=== PATIENT | female | born 1955 | race Caucasian/White ===

== ENCOUNTER 2018-05-02 08:29 | Emergency (ER) | payer OTHER, SELFPAY ==
[2018-05-02 08:45] VITALS: PULSE 74
[2018-05-02 08:49] VITALS: BP 147/73; PULSE 74; RESP 18; TEMP 37; O2SAT 99; BMI 22.3
--- NOTE | 2018-05-02 08:49 | DI.RAD.S_ITS ---
PROCEDURE: XR FOOT LT MIN 3V INDICATIONS: fall pain, mid foot TECHNIQUE: 3 views of the foot were acquired. COMPARISON: [facility], CR, XR ANKLE LT MIN 3V, 05/02/2018, 8:53. [facility], CR, FOOT 3V LEFT, 02/19/2012, 12:30. FINDINGS: Bones: No fractures or dislocations. No suspicious bony lesions. Soft tissues: No tibiotalar joint effusion. Achilles tendon appears normal. IMPRESSION: No visualized acute fracture or dislocation. However, if clinical concern and/or pain persist, short interval imaging followup in 7-10 days is recommended, as occult injury cannot be definitively excluded. Dictated by: Shonna Baird M.D. on 05/02/2018 at 9:42 Approved by: Shonna Baird M.D. on 05/02/2018 at 9:43
--- NOTE | 2018-05-02 08:49 | DI.RAD.S_ITS ---
PROCEDURE: XR ANKLE LT MIN 3V INDICATIONS: fall pain TECHNIQUE: 3 views of the ankle were acquired. COMPARISON: [facility], , XR FOOT LT MIN 3V, 05/02/2018, 8:51. FINDINGS: Bones: No fractures or dislocations. Ankle mortise is normally aligned. No suspicious bony lesions. Soft tissues: No tibiotalar joint effusion. Achilles tendon appears normal. IMPRESSION: No visualized acute fracture or dislocation. However, if clinical concern and/or pain persist, short interval imaging followup in 7-10 days is recommended, as occult injury cannot be definitively excluded. Dictated by: Shonna Baird M.D. on 05/02/2018 at 9:43 Approved by: Shonna Baird M.D. on 05/02/2018 at 9:44
--- NOTE | 2018-05-02 08:49 | DI.RAD.S_ITS ---
PROCEDURE: XR KNEE LT 3V INDICATIONS: fall pain TECHNIQUE: 3 views of the knee were acquired. COMPARISON: None. FINDINGS: Bones: Poorly defined nondisplaced lucency along the margin of the proximal. No suspicious bony lesions. Soft tissues: Moderate joint effusion. No suspicious soft tissue calcifications. IMPRESSION: Questionable nondisplaced fracture in the proximal fibula with moderate effusion. Recommend correlation to point tenderness. Dictated by: Shonna Baird M.D. on 05/02/2018 at 9:17 Approved by: Shonna Baird M.D. on 05/02/2018 at 9:41
--- NOTE | 2018-05-02 08:59 | ED_ITS ---
HPI - Extremity Injury (Lower) General Chief Complaint: Extremity Injury, Lower Stated Complaint: fell, left leg pain Time Seen by Provider: 05/02/18 08:43 Source: patient Mode of arrival: wheelchair Limitations: no limitations History of Present Illness HPI Narrative: Patient is a 63-year-old female who presents with all left leg pain. She says she was walking yesterday when she tripped and fell. She is unable to ambulate or bear any weight. She has pain in her foot ankle and knee. No hip pain. No numbness or tingling. MD complaint: knee injury, leg injury, ankle injury, foot injury and fall Related Data Home Medications Medication Instructions Recorded Confirmed aspirin 325 mg PO QPM #0 11/28/12 05/02/18 insulin aspart U-100 [Novolog 1 dose SUB-Q TIDWM #0 11/28/12 05/02/18 U-100 Insulin aspart] alprazolam 1 tab PO QDAY #0 10/23/16 05/02/18 insulin glargine [Lantus Solostar 15 units SUB-Q QPM 05/02/18 05/02/18 U-100 Insulin] ranitidine HCl 2 tab PO QPM 05/02/18 05/02/18 tolterodine 4 mg PO QPM 05/02/18 05/02/18 venlafaxine 75 mg PO QAM 05/02/18 05/02/18 Allergies Allergy/AdvReac Type Severity Reaction Status Date / Time No Known Drug Allergies Allergy Verified 05/02/18 08:53 Review of Systems Review of Systems GENERAL: Denies chills,fever HEENT: Denies throat pain RESPIRATORY: Denies dyspnea, cough, wheezing CARDIOVASCULAR: Denies chest pain, palpitations GASTROINTESTINAL: Denies nausea, vomiting MUSCULOSKELETAL: See HPI SKIN: No rash, no laceration, no pruritus NEUROLOGIC: Denies weakness, dizziness, headache, numbness 8 point review of systems is negative except for those stated above and HPI All systems reviewed & are unremarkable except as noted in HPI and below PFSH Medical History Diabetes (Acute) Social History Smoking Status: Current every day smoker Exam Initial Vital Signs Initial Vital Signs: Vital Signs Pulse Rate 74 05/02/18 08:45 GENERAL: Well-appearing, well-nourished and in no acute distress. CARDIOVASCULAR: peripheral pulses in tact, cap refill <2 sec RESPIRATORY: No respiratory distress, speaks in full sentences without difficulty EXTREMITIES: Normal range of motion, no clubbing or edema. Neurovascularly intact SEE BELOW NEUROLOGICAL: Cranial nerves II through XII grossly intact. Normal gait and speech. SKIN: Warm, dry, no petechiae, no rashes or lesions. Extrem Left lower extremity: normal to inspection, knee Details: tenderness; no abrasions, no lacerations and no ecchymosis, ankle Details: normal to inspection , tenderness and abnormal ROM Details: pain with active ROM Details: with plantar flexion and pain with passive ROM Details: with plantar flexion; no swelling and edema and foot Details: normal capillary refill, tendon exam Details: active flexion normal and motor-sensory exam Details: light-touch normal; no edema and no abrasions Course Orders Ordered: ED Orders 05/02/18 08:49 XR ankle LT min 3V Stat XR foot LT min 3V Stat XR knee LT 3V Stat Vital Signs - 8 hr 05/02/18 11:02 Pulse Rate 72 Respiratory Rate 18 Blood Pressure 154/72 H Pulse Oximetry 100 MDM - Extremity Injury (Lower) Imaging Data ankle x ray: Radiologist's impression: PROCEDURE: XR ANKLE LT MIN 3V INDICATIONS: fall pain TECHNIQUE: 3 views of the ankle were acquired. COMPARISON: [facility], XR FOOT LT MIN 3V, 05/02/2018, 8:51. FINDINGS: Bones: No fractures or dislocations. Ankle mortise is normally aligned. No suspicious bony lesions. Soft tissues: No tibiotalar joint effusion. Achilles tendon appears normal. IMPRESSION: No visualized acute fracture or dislocation. However, if clinical concern and/or pain persist, short interval imaging followup in 7-10 days is recommended , as occult injury cannot be definitively excluded. Dictated by: Shonna Baird M.D. on 05/02/2018 at 9:43 xr foot: My impression: PROCEDURE: XR FOOT LT MIN 3V INDICATIONS: fall pain, mid foot TECHNIQUE: 3 views of the foot were acquired. COMPARISON: [facility], , XR ANKLE LT MIN 3V, 05/02/2018, 8:53. [facility], , FOOT 3V LEFT, 02/19/2012, 12:30. FINDINGS: Bones: No fractures or dislocations. No suspicious bony lesions. Soft tissues: No tibiotalar joint effusion. Achilles tendon appears normal. IMPRESSION: No visualized acute fracture or dislocation. However, if clinical concern and/or pain persist, short interval imaging followup in 7-10 days is recommended , as occult injury cannot be definitively excluded. Dictated by: Shonna Baird M.D. on 05/02/2018 at 9:42 knee xr: Radiologist's impression: PROCEDURE: XR KNEE LT 3V INDICATIONS: fall pain TECHNIQUE: 3 views of the knee were acquired. COMPARISON: None. FINDINGS: Bones: Poorly defined nondisplaced lucency along the margin of the proximal. No suspicious bony lesions. Soft tissues: Moderate joint effusion. No suspicious soft tissue calcifications. IMPRESSION: Questionable nondisplaced fracture in the proximal fibula with moderate effusion. Recommend correlation to point tenderness. Dictated by: Shonna Baird M.D. on 05/02/2018 at 9:17 MDM Narrative Medical decision making narrative: KNEE IMMOBILIZER PLACED, CRUTCHES AND TRAINING Discharge Plan Departure Patient Disposition: Home, Self-Care Clinical Impression: Fracture of fibula, proximal, Foot sprain Discharge Date/Time: 05/02/18 11:02 Interventions: ED Discharge Assessment Last Done: 05/02/18 11:02 Instructions: DI for Knee Sprain, DI for Foot Sprain Activity Restrictions/Additional Instructions: *You have been diagnosed with proximal fibula fracture, ft sprain ankle sprain *What to do: Wear knee immobilizer and use crutches, no fracture seen in foot or ankle if still having pain and discomfort in 7-10 days may require repeat outpatient x-ray. -ice 20 min at a time -keep the splint on at all times *Continue to take medications as directed -ibuprofen 600-800 mg every 8 hr as needed for mild-to- moderate pain *Follow up with your primary care provider in 2-3 days, call Orthopedics today to schedule follow-up appointment in 1-2 weeks *Return to ER if you should have numbness, tingling, weakness especially in foot or any new, worsening or concerning symptoms Prescriptions: No Action aspirin 325 MG tablet,delayed release (DR/EC) 325 mg PO QPM Qty: 0 RF: 0 insulin aspart U-100 [Novolog U-100 Insulin aspart] 100 UNIT/1 ML solution 1 dose Sub-Q TIDWM Qty: 0 RF: 0 alprazolam 0.25 MG tablet 1 tab PO QDAY Qty: 0 RF: 0 venlafaxine 75 mg capsule,extended release 24hr 75 mg PO QAM RF: 0 tolterodine 4 mg capsule,extended release 24hr 4 mg PO QPM RF: 0 ranitidine HCl 150 mg tablet 2 tab PO QPM RF: 0 insulin glargine [Lantus Solostar U-100 Insulin] 100 unit/mL (3 mL) insulin pen 15 units Sub-Q QPM RF: 0 Referrals: [facility] [Provider Group] Tyrese Simpson MD [Primary Care Provider] -
[2018-05-02 11:02] VITALS: BP 154/72; PULSE 72; RESP 18; O2SAT 100
== END 2018-05-02 11:02 | disposition home or self-care (01) ==
PROVIDERS: Emergency Provider Emergency Medicine; Family Provider Internal Medicine; PCP Internal Medicine
DX: S82.832A Other fracture of upper and lower end of left fibula, initial encounter for closed fracture (principal); S93.602A Unspecified sprain of left foot, initial encounter; W01.0XXA Fall on same level from slipping, tripping and stumbling without subsequent striking against object, initial encounter
CPT/HCPCS: 73562; 73610; 73630; 99282; 99283

== ENCOUNTER → 2018-10-10 14:11 | Outpatient (CLI) | payer OTHER, SELFPAY ==
--- NOTE | 2018-10-10 | DI.MG.S_ITS ---
BILATERAL DIGITAL DIAGNOSTIC MAMMOGRAM 3D/2D: 10/10/2018 CLINICAL: Left lump. Family history of breast cancer. Comparison is made to exams dated: 01/10/2018 mammogram, 02/04/2016 mammogram, and 10/02/2014 mammogram - [facility]. The tissue of both breasts is extremely dense, which lowers the sensitivity of mammography. There is a triangular marker overlying the skin of the superior left breast at the site of the patient's reported palpable abnormality. There is no underlying mammographic abnormality. There are linear scar markers overlying the skin of the right breast. No significant masses, calcifications, or other findings are seen in either breast. IMPRESSION: INCOMPLETE: NEEDS ADDITIONAL IMAGING EVALUATION No mammographic abnormality to correlate with the site of the patient's reported focal palpable abnormality in the superior left breast. Targeted diagnostic ultrasound recommended for further evaluation, which will be performed immediately following this exam. This exam was interpreted at Station ID: [id number]. NOTE: For mammograms, a report in lay terms will be sent to the patient. Approximately 15% of breast malignancies will not be visualized mammographically. In the management of a palpable breast mass, a negative mammogram must not discourage biopsy of a clinically suspicious lesion. Electronically Signed By: Mohsen Forde M.D. ecl/:10/10/2018 15:36:23 letter sent: Additional Imaging Needed ACR BI-RADS Category 0: Incomplete 3340F
--- NOTE | 2018-10-10 | DI.US.S_ITS ---
LIMITED ULTRASOUND OF LEFT BREAST: 10/10/2018 CLINICAL: Palpable left breast lump. Comparison is made to exams dated: 10/10/2018 mammogram, 01/10/2018 mammogram, and 02/04/2016 mammogram - [facility]. Real-time and Doppler ultrasound of the left breast superior aspect were performed. Targeted ultrasound was performed in the region of the patient's reported focal palpable abnormality in the superior left breast. No underlying breast mass or abnormality is identified. IMPRESSION: NEGATIVE 1) No ultrasound findings to explain patient's reported focal palpable abnormality in the superior left breast. Recommend clinical follow-up for further evaluation and management of the patient's reported symptoms. Consider breast MRI if there is continued clinical concern, particularly given the patient's extremely dense breast tissue and family history of breast malignancy. 2) There is no sonographic evidence of malignancy. Return to annual screening mammography is recommended. The patient is advised to monitor her breasts and to return sooner for re-evaluation should she feel anything grow or change. This exam was interpreted at Station ID: [id number]. Electronically Signed By: Mohsen Forde M.D. ecl/:10/10/2018 15:39:05 letter sent: Clinical Evaluation Ultrasound BI-RADS: 1 Negative
== END ==
DX: R92.8 Other abnormal and inconclusive findings on diagnostic imaging of breast (principal); N63.20 Unspecified lump in the left breast, unspecified quadrant; Z80.3 Family history of malignant neoplasm of breast
CPT/HCPCS: 76642; 77066; G0279

== ENCOUNTER 2019-05-27 11:51 | Day surgery (SDC) | payer OTHER, SELFPAY ==
--- NOTE | 2019-05-27 | PATH_ITS ---
[facility] Accession Number: [id number] . 01 Material submitted: . rectum - RECTAL POLYP . 02 Diagnosis: Rectum, Polyp, Biopsy: Hyperplastic polyp. MRV/05/28/2019 . 02 Electronically signed: . Malika Barrera MD, Pathologist NPI- [id number] . 01 Gross description: . RECTAL POLYP: Received in formalin is 1 fragment(s) of salgado, soft tissue measuring 0.3 x 0.2 x 0.2 cm which is entirely submitted and submitted entirely in 1 cassette(s) /DMC /DMC . 02 Pathologist provided ICD-10: K62.1 . 02 CPT . 733917 Performed at: 01 [facility] [address] [id number] MD Rhys Nicolas MD Phone: [phone] Performed at: 02 [facility] [address] [place], [place] [id number] MD Malika Barrera MD Phone: [phone]
[2019-05-27 12:30] VITALS: BP 129/77; PULSE 76; RESP 16; TEMP 36.5; O2SAT 96; BMI 21.8
--- NOTE | 2019-05-27 13:23 | P.HP_ITS ---
History of Present Illness Date Patient Seen: 05/27/19 Time Patient Seen: 13:22 Chief complaint: [id number] Narrative: 64-year-old woman presents 10 years after last screening colonoscopy No family history of colorectal cancer She is unsure whether not her father has a history of colon polyps No GI complaints Tolerated prep well Patient History Medical History (Updated 05/27/19 @ 12:18 by Vanita Kendall RN) Anxiety (Acute) Depression (Acute) Diabetes type I (Acute) GERD (gastroesophageal reflux disease) (Acute) Kidney stones (Acute) Social History household members: spouse Smoking Status: Current every day smoker Family & Social History Social History: household members spouse Tobacco & Substance use: Smoking Status Current every day smoker alcohol intake frequency 0-2 drinks per day Substance Use Type does not use Meds Home Medications Medication Instructions Recorded Confirmed Type Novolog U-100 Insulin aspart 1 dose SUB-Q TIDWM #0 11/28/12 05/27/19 History aspirin 325 mg PO QPM #0 11/28/12 05/27/19 History alprazolam 1 tab PO QDAY #0 10/23/16 05/27/19 History insulin glargine [Lantus Solostar 24 units SUB-Q QPM 05/02/18 05/27/19 History U-100 Insulin] ranitidine HCl 1 tab PO BID 05/02/18 05/27/19 History tolterodine 4 mg PO QPM 05/02/18 05/27/19 History venlafaxine 75 mg PO QAM 05/02/18 05/27/19 History Allergies Allergy/AdvReac Type Severity Reaction Status Date / Time No Known Drug Allergies Allergy Verified 05/27/19 12:18 Review of Systems Constitutional Constitutional: Denies fever(s) Eyes Eyes: Denies bulging eyes ENT Ears, Nose, Mouth, and Throat: No lip swelling Cardiovascular Cardiovascular: Denies generalize swelling Respiratory Respiratory: Denies stridor Gastrointestinal Gastrointestinal: Denies coffee ground emesis Musculoskeletal Musculoskeletal: Denies loss of height Integumentary/Breasts Skin/Breast: Denies wounds Neurologic Neurologic: Denies abnormal speech and Denies confusion Psychiatric Psychiatric: Denies confusion Endocrine Endocrine: Denies deepening of the voice Hematologic/Lymphatic Hematologic/Lymphatic: Denies lymphadenopathy Allergic/Immunologic Allergic/Immunologic: Denies lip swelling Exam Vital Signs (past 8 hours): - 05/27/19 12:30 Temperature 97.7 F Pulse Rate 76 Respiratory Rate 16 Blood Pressure 129/77 Pulse Oximetry 96 Oxygen Delivery Method Room Air Const General: cooperative and healthy appearing Orientation: alert [facility] Head: normal to inspection Nose: nares normal Mouth: oral mucosae normal and lip normal Eyes Eyelids: eyelids normal Conjunctivae: conjunctivae normal Sclera: sclerae normal Neck Neck: supple and other (No thyromegally) Chest Chest: other (LCTAB , regular respiratory effort) Cardio Rhythm: regular rhythm Heart Sounds: S1 normal, S2 normal, no gallops, no murmurs and no rubs GI Other: Abdomen soft nontender nondistended no surgical scars Skin General: no rashes or lesions noted Neuro General: alert and awake Psych Appearance: grossly normal Affect: normal affect Assessment & Plan Assessment & Plan narrative: 64-year-old here screening colonoscopy 10 years a fter last risks and benefits of procedure risk perforation missed, hypoxia all discussed All questions answered Patient ready to proceed
--- NOTE | 2019-05-27 13:35 | SUR.OPER ---
BLOOD SUGAR 212 ON PATIENTS DEVICE, TOLERATED PROCEDURE WELL, VITAL SIGNS STABLE..SEE STRIPS, REACTS QUICKLY TO VERBAL STIMULATION
[2019-05-27] MEDS: MIDAZOLAM 5 MG/5 ML VIAL IV (13:39)
[2019-05-27] MEDS: fentaNYL 250 MCG/5 ML INJ IV (13:40)
--- NOTE | 2019-05-27 13:42 | SUR.OPER ---
WIRE STIIFNER USED
--- NOTE | 2019-05-27 13:50 | SUR.OPER ---
PREP LESS THAN CLEAR, SOME DEBRIS
[2019-05-27] MEDS: LACTATED RINGERS 1,000 ML 150 ML IV (13:56)
[2019-05-27 14:20] VITALS: BP 132/75; PULSE 64; RESP 17; O2SAT 97
--- NOTE | 2019-05-27 14:21 | PM.OP.ENDO ---
Operative Date/Time/Diagnoses Date of procedure: 05/27/19 Time of procedure: 14:21 Post-op diagnosis: same Procedure & Clinicians Study performed: Screening colonoscopy -complete Rectal polypectomy, cold biopsy forceps Same procedure as scheduled: Yes Indications: 64-year-old woman without a family history of colorectal cancer presents 10 years after last screening colonoscopy. Surgeon: Brock Guajardo Procedure Notes SCOAP/Timeout: Completed Procedure in detail: Patient was brought to the endoscopy suite, she underwent a time-out. She was sedated over the entire course of the procedure with 5 mg of midazolam and 50 mcg of fentanyl. A a digital rectal exam was performed without lesions. 160 cm colonoscope was advanced through the anus rectum and cecal folds. Upon reaching the transverse colon there was significant amount of seed like debris within the colon. This was sequentially irrigated and suctioned out to be able to evaluate the colonic lumen and see the pathway forward, the same was true of the right colon. Using this technique was eventually able to see and moved to the cecum. This was identified via crows foot, ileocecal valve an a appendiceal orifice. The colonoscope was then slowly backed out. No mucosal lesions were identified. Overall the colon appeared to be healthy. The prep however was fair -I felt confident I could visualize all lesions 10 mm or greater, the lesions in the 5 mm range may have been missed. A single distal rectal polyp was identified and removed via a biopsy forcep. The scope was retroflexed in the distal rectum no additional lesions were identified Prep was fair Will need to return for repeat colonoscopy due to fair prep within 5 years Scope withdrawal time: 15 Sedation minutes: 35 Specimen(s): other (Rectal polyp) Impression: Complete screening colonoscopy with fair prep -will need follow-up in 5 years Small Rectal polyp status post polypectomy Recommendations: Colonscopy in 5 years Plan for aftercare: PACU then home Follow up: as needed Disposition: PACU
[2019-05-27 14:25] VITALS: BP 130/80; PULSE 75; RESP 17; TEMP 36.4; O2SAT 100
[2019-05-27 14:36] VITALS: BP 136/74; PULSE 68; RESP 17; O2SAT 98
== END 2019-05-27 15:00 | disposition home or self-care (01) ==
PROVIDERS: Visit Provider Surgery
PROC: 0DJD8ZZ Inspection of Lower Intestinal Tract, Via Natural or Artificial Opening Endoscopic (ICD-10-PCS; CPT 45378; principal; 2019-05-27 13:00)
DX: Z12.11 Encounter for screening for malignant neoplasm of colon (principal); K62.1 Rectal polyp
CPT/HCPCS: 45380; 88305; 99152; 99153; J2250; J3010

== ENCOUNTER → 2019-12-12 10:54 | Outpatient (CLI) | payer OTHER, SELFPAY ==
--- NOTE | 2019-12-12 | DI.MG.S_ITS ---
BILATERAL DIGITAL SCREENING MAMMOGRAM 3D/2D WITH CAD: 12/12/2019 CLINICAL: Routine screening. Family history of breast cancer. Comparison is made to exams dated: 10/10/2018 mammogram, 01/10/2018 mammogram, 02/04/2016 mammogram, and 10/02/2014 mammogram - [facility]. The tissue of both breasts is extremely dense, which lowers the sensitivity of mammography. Current study was also evaluated with a Computer Aided Detection (CAD) system. No significant masses, calcifications, or other findings are seen in either breast. There has been no significant interval change. IMPRESSION: NEGATIVE There is no mammographic evidence of malignancy. A 1 year screening mammogram is recommended. This exam was interpreted at Station ID: [id number]. NOTE: For mammograms, a report in lay terms will be sent to the patient. Approximately 15% of breast malignancies will not be visualized mammographically. In the management of a palpable breast mass, a negative mammogram must not discourage biopsy of a clinically suspicious lesion. Electronically Signed By: Bryson river/bertha:12/12/2019 18:19:26 letter sent: Normal Exam ACR BI-RADS Category 1: Negative 3341F
== END ==
DX: Z12.31 Encounter for screening mammogram for malignant neoplasm of breast (principal); Z80.3 Family history of malignant neoplasm of breast
CPT/HCPCS: 77063; 77067

== ENCOUNTER → 2020-12-15 16:41 | Outpatient (CLI) | payer MEDICARE, OTHER, SELFPAY ==
--- NOTE | 2020-12-15 16:47 | DI.MG.S_ITS ---
Date: 12/15/2020 16:47 At the request of: NATHANIEL FERNANDEZ Procedure: MM screening mammo BI BILATERAL DIGITAL SCREENING MAMMOGRAM 3D/2D WITH CAD: 12/15/2020 CLINICAL: Routine screening. Comparison is made to exams dated: 12/12/2019 mammogram, 10/10/2018 mammogram, and 01/10/2018 mammogram - [facility]. The tissue of both breasts is extremely dense, which lowers the sensitivity of mammography. Current study was also evaluated with a Computer Aided Detection (CAD) system. No significant masses, calcifications, or other findings are seen in either breast. There has been no significant interval change. IMPRESSION: NEGATIVE There is no mammographic evidence of malignancy. A 1 year screening mammogram is recommended. This exam was interpreted at Station ID: [id number]. NOTE: For mammograms, a report in lay terms will be sent to the patient. Approximately 15% of breast malignancies will not be visualized mammographically. In the management of a palpable breast mass, a negative mammogram must not discourage biopsy of a clinically suspicious lesion. Electronically Signed By: Vadim correa/bertha:12/16/2020 09:05:11 letter sent: Normal Exam ACR BI-RADS Category 1: Negative [id number]
== END ==
PROVIDERS: Referring Provider Family Medicine; Visit Provider Family Medicine
DX: Z12.31 Encounter for screening mammogram for malignant neoplasm of breast (principal)
CPT/HCPCS: 77063; 77067

== ENCOUNTER 2022-08-12 17:33 | Emergency (ER) | payer MEDICARE, OTHER, SELFPAY ==
[2022-08-12] VITALS (7 sets, daily range): BP systolic 130–157; BP diastolic 63–74; PULSE 65–91; RESP 18; TEMP 36.6; O2SAT 95–99; BMI 23.1
[2022-08-12 19:09] LABS: Add Manual Diff / Slide Review NO; Basophils Absolute Auto 0 /uL (0-100); Basophils Percent Auto 0.5 % (0-2); Eosinophils Absolute Auto 100 /uL (0-450); Eosinophils Percent Auto 0.8 % (2-4); Hematocrit 38.7 % (36-46); Hemoglobin 13.4 g/dL (12.0-16.0); Lymphocytes Absolute Auto 2000 /uL (1100-4500); Lymphocytes Percent Auto 22.6 % (25-40); Mean Corpuscular HGB Conc 34.5 % (30-36); Mean Corpuscular Hemoglobin 31.2 PG (26-34); Mean Corpuscular Volume 90.5 fL (80-100); Monocytes Absolute Auto 700 /uL (0-900); Monocytes Percent Auto 7.9 % (3-14); Neutrophils Absolute Auto 5900 /uL (1500-7000); Neutrophils Percent Auto 68.2 % (50-75); Platelet Count 227 X10^3/uL (150-400); Red Blood Cell Count 4.27 X10^6/uL (4.0-5.2); Red Cell Distribution Width 14.1 % (11.6-14.8); White Blood Cell Count 8.7 X10^3/uL (4.5-11.0)
[2022-08-12 19:15] LABS: Alanine Aminotransferase 29 IU/L (<35); Albumin 3.9 g/dL (3.5-5.0); Albumin Globulin Ratio 1.3 (1.0-2.8); Alkaline Phosphatase 70 U/L (38-126); Aspartate Aminotransferase 36 IU/L (14-36); BUN Creatinine Ratio 47.8 (6-22); Bilirubin Total 0.6 mg/dL (0.2-1.3); Blood Urea Nitrogen 33 mg/dL (7-17); Carbon Dioxide 29 mmol/L (22-32); Chloride 100 mmol/L (98-107); Creatine Kinase 141 U/L (30-135); Estimated Glomerular Filt Rate > 60 mL/min (>60); Globulin 3.1 g/dL (1.7-4.1); Glucose 265 mg/dL (80-110); HEMOLYSIS < 15 (0-50); Potassium 3.9 mmol/L (3.4-5.1); Sodium 136 mmol/L (137-145)
[2022-08-12 19:26] LABS: Troponin I < 0.012 ng/mL (0.01-0.034)
[2022-08-12] MEDS: SODIUM CHLORIDE 0.9% 1,000 ML 1000 ML IV (19:29)
[2022-08-12 19:30] LABS: Creatine Kinase MB 2.85 ng/mL (<2.37)
[2022-08-12 20:31] LABS: Bacteria Urine Occasional (0-1); Culture Indicated Urine Specimen Cultured; RBC Urine 5-10/HPF (0-5/HPF); Squamous Epithelial Cell Urine 0-1 /HPF (0-5/HPF); WBC Urine 5-10/HPF (0-5/HPF)
--- NOTE | 2022-08-12 21:15 | ED_ITS ---
HPI - General Adult General Chief complaint: Diabetic Problem Stated complaint: Diabetic issue with new insulin pump Time Seen by Provider: 08/12/22 18:42 Source: patient Mode of arrival: Ambulatory History of Present Illness HPI narrative: 67-year-old type 1 diabetic who has been on insulin for a number of years recently switched pumps and has been having difficulties with high blood sugars. She has noted a number that are greater than 400 at home. This is very unusual for her. She complains of a global weakness type feeling when her sugars are are that high. She does not have specific infectious Disease complaints such as fever, cough, chills, vomiting, diarrhea, flank pain, dysuria, headache. She is not having chest pain or palpitations. After 48 hours of elevated blood sugars she looked at the insulin pump noted that the 1st needle was bent change that was still having difficulties and noted the 2nd needle was also bent. At that point she removed the pump completely and has gone back to her Lantus and NovoLog. She is concerned that even with that her blood sugars are still elevated and she is needing more insulin than she has previously. She was concerned that the insulin itself was not effective so she throughout 1 batch that was due to in August of this year and is now using a new batch that is not set to until spring. Related Data Home Medications Medication Instructions Recorded Confirmed aspirin 325 mg tablet,delayed 325 mg PO QPM ##0 11/28/12 05/27/19 release insulin aspart U-100 100 unit/mL 1 dose SUBCUT TIDWM ##0 11/28/12 05/27/19 subcutaneous solution (Novolog U-100 Insulin aspart) alprazolam 0.25 mg tablet 1 tab PO QDAY ##0 10/23/16 05/27/19 insulin glargine 100 unit/mL (3 24 units SUBCUT QPM 05/02/18 05/27/19 mL) subcutaneous pen (Lantus Solostar U-100 Insulin) ranitidine HCl 150 mg tablet 1 tab PO BID 05/02/18 05/27/19 tolterodine 4 mg capsule,extended 4 mg PO QPM 05/02/18 05/27/19 release 24 hr venlafaxine 75 mg capsule,extended 75 mg PO QAM 05/02/18 05/27/19 release 24 hr Allergies Allergy/AdvReac Type Severity Reaction Status Date / Time lisinopril Allergy Intermediate Rash Verified 08/12/22 19:36 Review of Systems Review of Systems Narrative: Remainder of complete review of systems is otherwise unremarkable except for that included in the HPI. Patient History Medical History Anxiety Depression Diabetes type I GERD (gastroesophageal reflux disease) Kidney stones Social History household members: spouse Smoking Status: Current every day smoker Smoking Status: Current every day smoker tobacco type: cigarettes alcohol intake frequency: 0-2 drinks per day Substance Use Type: does not use Exam Initial Vital Signs Initial Vital Signs: Vital Signs Temperature 98 F 08/12/22 17:41 Pulse Rate 91 H 08/12/22 17:41 Respiratory Rate 18 08/12/22 17:41 Blood Pressure 131/63 08/12/22 17:41 Pulse Oximetry 96 08/12/22 17:41 Oxygen Delivery Method 08/12/22 17:41 General: Healthy appearing, in no acute distress. Able to give a complete and coherent history. Well-nourished well-developed HEENT: Moist mucous membranes, normal sclera with reactive pupils, Neck: No JVD, supple Respiratory: Lungs are clear to auscultation, no wheezing no rales no rhonchi. Full and symmetrical air movement Cardiac: Regular rate and rhythm no murmurs no bruits Abdomen: Soft, nontender, good bowel tones, no flank pain Skin: Warm and dry, no rashes Neurologic: Grossly neurologically intact with no obvious asymmetries or abnormalities Extremities: No trauma, well perfused Psych: Cooperative, appropriate insight and affect Course Orders Ordered: ED Orders 08/12/22 18:30 Complete Blood Count AUTO DIFF Stat Comprehensive Metabolic Panel Stat Troponin & CK Cardiac Panel Stat 08/12/22 19:30 Urine Culture Stat Urine Culture Stat Urine Microscopic Stat 08/12/22 20:45 Respiratory Panel (Film Array) Stat Discontinued Medications Sodium Chloride (Normal Saline 0.9%) 1,000 mls @ 1,000 mls/hr IV BOLUS ONE Stop: 08/12/22 20:18 Last Infusion: 08/12/22 20:31 Dose: 0 mls/hr Documented By: Admin: 08/12/22 19:29 Dose: 1,000 mls/hr Documented By: SB Vital Signs Vital signs: Vital Signs - 8 hr 08/12/22 17:41 08/12/22 18:42 08/12/22 18:42 Temperature 98 F Pulse Rate 91 H 68 Respiratory Rate 18 Blood Pressure 131/63 130/63 Pulse Oximetry 96 95 Oxygen Delivery Method Room Air 08/12/22 19:00 08/12/22 19:30 08/12/22 20:18 Temperature Pulse Rate 66 66 Respiratory Rate Blood Pressure 157/74 H Pulse Oximetry 98 99 Oxygen Delivery Method 08/12/22 20:18 08/12/22 21:38 08/12/22 21:39 Temperature Pulse Rate 65 65 Respiratory Rate Blood Pressure Pulse Oximetry 99 97 96 Oxygen Delivery Method 08/12/22 21:39 Temperature Pulse Rate Respiratory Rate Blood Pressure 154/70 H Pulse Oximetry Oxygen Delivery Method Medical Decision Making Lab Data Result diagrams: 08/12/22 18:30 08/12/22 18:30 Labs: Lab Results 08/12/22 08/12/22 08/12/22 Range/Units 18:30 18:30 19:30 WBC 8.7 (4.5-11.0) X10^3/uL RBC 4.27 (4.0-5.2) X10^6/uL Hgb 13.4 (12.0-16.0) g/dL Hct 38.7 (36-46) % MCV 90.5 (80-100) fL MCH 31.2 (26-34) PG MCHC 34.5 (30-36) % RDW 14.1 (11.6-14.8) % Plt Count 227 (150-400) X10^3/uL Neut % (Auto) 68.2 (50-75) % Lymph % (Auto) 22.6 L (25-40) % Calhoun % (Auto) 7.9 (3-14) % Eos % (Auto) 0.8 L (2-4) % Baso % (Auto) 0.5 (0-2) % Neut # (Auto) 5900 (4074-0615) /uL Lymph # (Auto) 2000 (8972-0529) /uL [place]oun # (Auto) 700 (0-900) /uL Eos # (Auto) 100 (0-450) /uL Baso # (Auto) 0 (0-100) /uL Sodium 136 L (137-145) mmol/L Potassium 3.9 (3.4-5.1) mmol/L Chloride 100 (98-107) mmol/L Carbon Dioxide 29 (22-32) mmol/L BUN 33 H (7-17) mg/dL Creatinine 0.69 (0.52-1.04) mg/dL Estimated GFR > 60 (>60) mL/min BUN/Creatinine Ratio 47.8 H (6-22) Glucose 265 H (80-110) mg/dL Calcium 9.0 (8.4-10.2) mg/dL Total Bilirubin 0.6 (0.2-1.3) mg/dL AST 36 (14-36) IU/L ALT 29 (<35) IU/L Alkaline Phosphatase 70 (38-126) U/L Total Creatine Kinase 141 H (30-135) U/L CK-MB (CK-2) 2.85 H (<2.37) ng/mL CK-MB (CK-2) Rel Index 2.0 (1.5-5.0) % Troponin I < 0.012 (0.01-0.034) ng/mL Total Protein 7.0 (6.3-8.2) g/dL Albumin 3.9 (3.5-5.0) g/dL Globulin 3.1 (1.7-4.1) g/dL Albumin/Globulin Ratio 1.3 (1.0-2.8) Urine RBC 5-10/hpf H (0-5/HPF) Urine WBC 5-10/hpf H (0-5/HPF) Ur Squamous Epith Cells 0-1 /hpf (0-5/HPF) Urine Bacteria Occasional (0-1) (None) Ur Culture Indicated? Specimen cultured Chlamy pneumoniae PCR (Not Detect) Adenovirus (PCR) (Not Detect) B. pertussis DNA (PCR) (Not Detecte) B.parapertussis DNA PCR (Not Detecte) Coronavirus OC43 (PCR) (Not Detect) Coronavirus HKU1 (PCR) (Not Detect) Coronavirus 229E (PCR) (Not Detect) SARS-CoV-2 (PCR) (Not Detecte) Coronavirus NL63 (PCR) (Not Detect) Human Metapneumovir PCR (Not Detect) Influenza Type A (PCR) (Not Detect) Influenza Type B (PCR) (Not Detect) M. pneumoniae (PCR) (Not Detect) Parainfluenza 1 (PCR) (Not Detect) Parainfluenza 2 (PCR) (Not Detect) Parainfluenza 3 (PCR) (Not Detect) Parainfluenza 4 (PCR) (Not Detect) RSV (PCR) (Not Detect) Entero/Rhino (PCR) (Not Detect) 08/12/22 Range/Units 20:45 WBC (4.5-11.0) X10^3/uL RBC (4.0-5.2) X10^6/uL Hgb (12.0-16.0) g/dL Hct (36-46) % MCV (80-100) fL MCH (26-34) PG MCHC (30-36) % RDW (11.6-14.8) % Plt Count (150-400) X10^3/uL Neut % (Auto) (50-75) % Lymph % (Auto) (25-40) % Calhoun % (Auto) (3-14) % Eos % (Auto) (2-4) % Baso % (Auto) (0-2) % Neut # (Auto) (4805-6388) /uL Lymph # (Auto) (5849-9496) /uL Calhoun # (Auto) (0-900) /uL Eos # (Auto) (0-450) /uL Baso # (Auto) (0-100) /uL Sodium (137-145) mmol/L Potassium (3.4-5.1) mmol/L Chloride (98-107) mmol/L Carbon Dioxide (22-32) mmol/L BUN (7-17) mg/dL Creatinine (0.52-1.04) mg/dL Estimated GFR (>60) mL/min BUN/Creatinine Ratio (6-22) Glucose (80-110) mg/dL Calcium (8.4-10.2) mg/dL Total Bilirubin (0.2-1.3) mg/dL AST (14-36) IU/L ALT (<35) IU/L Alkaline Phosphatase (38-126) U/L Total Creatine Kinase (30-135) U/L CK-MB (CK-2) (<2.37) ng/mL CK-MB (CK-2) Rel Index (1.5-5.0) % Troponin I (0.01-0.034) ng/mL Total Protein (6.3-8.2) g/dL Albumin (3.5-5.0) g/dL Globulin (1.7-4.1) g/dL Albumin/Globulin Ratio (1.0-2.8) Urine RBC (0-5/HPF) Urine WBC (0-5/HPF) Ur Squamous Epith Cells (0-5/HPF) Urine Bacteria (None) Ur Culture Indicated? Chlamy pneumoniae PCR Not detected (Not Detect) Adenovirus (PCR) Detected H (Not Detect) B. pertussis DNA (PCR) Not detected (Not Detecte) B.parapertussis DNA PCR Not detected (Not Detecte) Coronavirus OC43 (PCR) Not detected (Not Detect) Coronavirus HKU1 (PCR) Not detected (Not Detect) Coronavirus 229E (PCR) Not detected (Not Detect) SARS-CoV-2 (PCR) Not detected (Not Detecte) Coronavirus NL63 (PCR) Not detected (Not Detect) Human Metapneumovir PCR Not detected (Not Detect) Influenza Type A (PCR) Not detected (Not Detect) Influenza Type B (PCR) Not detected (Not Detect) M. pneumoniae (PCR) Not detected (Not Detect) Parainfluenza 1 (PCR) Not detected (Not Detect) Parainfluenza 2 (PCR) Not detected (Not Detect) Parainfluenza 3 (PCR) Not detected (Not Detect) Parainfluenza 4 (PCR) Not detected (Not Detect) RSV (PCR) Not detected (Not Detect) Entero/Rhino (PCR) Not detected (Not Detect) Point of Care Testing Glucose POC 232 Urine Dip Bedside Urine Glucose 500 mg/dl Bedside Urine Bilirubin - Negative Bedside Urine Ketone +/- 5 Urine Specific [place] 1.015 Bedside Urine Occult Blood + Bedside Urine pH 6.0 Bedside Urine Protein +/- 15 Bedside Urine Urobilinogen - Negative Bedside Urine Nitrite - Negative Bedside Urine Leukocytes +/- 15 Esterase Point of care testing: Point of Care Testing Glucose POC 232 Urine Dip Bedside Urine Glucose 500 mg/dl Bedside Urine Bilirubin - Negative Bedside Urine Ketone +/- 5 Urine Specific [place] 1.015 Bedside Urine Occult Blood + Bedside Urine pH 6.0 Bedside Urine Protein +/- 15 Bedside Urine Urobilinogen - Negative Bedside Urine Nitrite - Negative Bedside Urine Leukocytes +/- 15 Esterase MDM Narrative Medical decision making narrative: 67-year-old woman with type 1 diabetes with high blood sugars. No evidence of DKA, acute coronary syndrome obvious infection. I do believe that there was something wrong with pump and delivering insulin. I do not have an explanation for why she is requiring more insulin with her Lantus and NovoLog than she has previously. Did explain to them that I am not seeing signs of other infection or complications at this time and she simply does need to use more insulin. This morning she used 22 units of Lantus and I suggested to increase that to 24 units tomorrow. She is well-versed on how to adjust with her NovoLog. She does not have a follow-up with her ticket agent until August but is meeting with a agricultural extension educator to talk about the pump usage and training early this week. She is safe for home discharge 1030pm Adenovirus + Patient is called and updated. Discharge Plan Departure Patient Disposition: Home Clinical Impression: Acute hyperglycemia, Type 1 diabetes, Adenovirus infection Activity Restrictions/Additional Instructions: Thank you for coming in tonight I am not seeing any evidence of acute bacterial infection, heart attack or diabetic ketoacidosis. Your respiratory panel is still pending and if 1 of the viruses turns out to be positive I will call you later this evening I agree with discontinuing the pump as it did not seem to be working effectively and discarding the initial insulin making sure that the current insulin you have is not outdated. From this point, I believe you simply need the amount of insulin you need to keep your blood sugars at your goal. There is no wrong amount and even if it you are needing more, it is what your body needs at this time. Please make sure you keep your appointment with the agricultural extension educator. If you are continuing to have difficulties falling of peer primary care doctor or your ticket agent will be 100% appropriate. If you have new or worsening symptoms, please feel free to return to the ER Prescriptions: No Action aspirin 325 MG tablet,delayed release (DR/EC) 325 mg PO QPM Qty: 0 Novolog U-100 Insulin aspart 100 UNIT/1 ML solution 1 dose Sub-Q TIDWM Qty: 0 Label Comments: uses for correction, sliding scale alprazolam 0.25 MG tablet 1 tab PO QDAY Qty: 0 venlafaxine 75 mg capsule,extended release 24hr 75 mg PO QAM tolterodine 4 mg capsule,extended release 24hr 4 mg PO QPM ranitidine HCl 150 mg tablet 1 tab PO BID Lantus Solostar U-100 Insulin 100 unit/mL (3 mL) insulin pen 24 units Sub-Q QPM Label Comments: 1/2 dose last night 0 Referrals: Meryl Juarez PA-C [Primary Care Provider] - Visit Report Forms: Patient Portal/API
[2022-08-12 21:57] LABS: Adenovirus Detected (Not Detect); B. parapertussis Not Detected (Not Detecte); Bordetella pertussis Not Detected (Not Detecte); Chlamydophila pneumoniae Not Detected (Not Detect); Coronavirus 229E Not Detected (Not Detect); Coronavirus HKU1 Not Detected (Not Detect); Coronavirus NL 63 Not Detected (Not Detect); Coronavirus OC43 Not Detected (Not Detect); Human Metapneumovirus Not Detected (Not Detect); Human Rhinovirus/Enterovirus Not Detected (Not Detect); Influenza A Not Detected (Not Detect); Influenza B Not Detected (Not Detect); Mycoplasma pneumoniae Not Detected (Not Detect); Parainfluenza Virus 1 Not Detected (Not Detect); Parainfluenza Virus 2 Not Detected (Not Detect); Parainfluenza Virus 3 Not Detected (Not Detect); Parainfluenza Virus 4 Not Detected (Not Detect); Respiratory Syncytial Virus Not Detected (Not Detect); SARS- CoV-2 Not Detected (Not Detecte)
== END 2022-08-12 21:45 | disposition home or self-care (01) ==
PROVIDERS: Emergency Provider Emergency Medicine
DX: E10.65 Type 1 diabetes mellitus with hyperglycemia (principal); B34.0 Adenovirus infection, unspecified; Z20.822 Contact with and (suspected) exposure to COVID-19
CPT/HCPCS: 36415; 80053; 81003; 81015; 82550; 82553; 82962; 84484; 85025; 87077; 87086; 87147; 87186; 87633; 96360; 99284